=== PATIENT | male | born 1965 | race African-American/Black ===

== ENCOUNTER 2024-03-05 12:02 | Emergency (ER) | payer OTHER ==
[2024-03-05] MEDS ORDERED: Acetaminophen 500 MG TAB ONE (14:21)
== END 2024-03-05 16:32 | disposition home or self-care (01) ==
LOC: ERS 12:02
DX: M54.50 Low back pain, unspecified (principal); M54.2 Cervicalgia; E11.9 Type 2 diabetes mellitus without complications; I10 Essential (primary) hypertension; V89.2XXA Person injured in unspecified motor-vehicle accident, traffic, initial encounter
CPT/HCPCS: 70450; 72100; 72125